=== PATIENT | female | born 1935 | race Caucasian/White ===

== ENCOUNTER → 2020-06-12 10:31 | Outpatient (CLI) | payer MEDICARE, BC, SELFPAY ==
[2020-06-12] MEDS: COVID-19 VACC #1, MRNA(MOD) 100 MCG/0.5 ML VIAL IM (10:39)
== END ==
PROVIDERS: Visit Provider Internal Medicine
DX: Z23 Encounter for immunization (principal)
CPT/HCPCS: 0011A; 91301

== ENCOUNTER → 2020-07-10 10:37 | Outpatient (CLI) | payer MEDICARE, BC, SELFPAY ==
[2020-07-10] MEDS: COVID-19 VACC #2, MRNA(MOD) 100 MCG/0.5 ML VIAL IM (10:46)
== END ==
PROVIDERS: Visit Provider Internal Medicine
DX: Z23 Encounter for immunization (principal)
CPT/HCPCS: 0012A; 91301